=== PATIENT | male | born 1990 | race Caucasian/White ===

== ENCOUNTER → 2016-08-30 | Outpatient (CLI) | payer BC | LOC: BHSO 12:47 | DX: F41.1 Generalized anxiety disorder (principal) | CPT/HCPCS: 90791-AI ==

== ENCOUNTER → 2016-10-17 | Outpatient (CLI) | payer BC | LOC: BHSO 13:42 | DX: F41.1 Generalized anxiety disorder (principal) | CPT/HCPCS: 90791-AI ==

== ENCOUNTER → 2016-12-05 | Outpatient (CLI) | payer BC | LOC: BHSO 13:38 | DX: F41.1 Generalized anxiety disorder (principal) ==

== ENCOUNTER → 2017-01-15 | Outpatient (CLI) | payer BC | LOC: BHSO 11:36 | DX: F33.1 Major depressive disorder, recurrent, moderate (principal) ==

== ENCOUNTER → 2017-03-05 | Outpatient (CLI) | payer BC | LOC: BHSO 15:34 | DX: F41.1 Generalized anxiety disorder (principal) ==

== ENCOUNTER → 2017-04-15 | Outpatient (CLI) | payer BC | LOC: BHSO 15:37 | DX: F41.1 Generalized anxiety disorder (principal) ==

== ENCOUNTER → 2017-07-11 | Outpatient (CLI) | payer BC | LOC: BHSO 14:30 | DX: F33.1 Major depressive disorder, recurrent, moderate (principal) | CPT/HCPCS: G0463 ==

== ENCOUNTER → 2017-08-21 | Outpatient (CLI) | payer BC | LOC: BHSO 13:22 | DX: F33.41 Major depressive disorder, recurrent, in partial remission (principal) | CPT/HCPCS: G0463 ==

== ENCOUNTER → 2017-10-24 | Outpatient (CLI) | payer BC | LOC: BHSO 15:21 | DX: F33.42 Major depressive disorder, recurrent, in full remission (principal) | CPT/HCPCS: G0463 ==

== ENCOUNTER → 2018-02-12 | Outpatient (CLI) | payer BC | LOC: BHSO 14:35 | DX: F33.42 Major depressive disorder, recurrent, in full remission (principal) | CPT/HCPCS: G0463 ==

== ENCOUNTER → 2018-06-19 | Outpatient (CLI) | payer OTHER | LOC: BHSO 14:52 | DX: F41.1 Generalized anxiety disorder (principal) ==

== ENCOUNTER → 2018-08-28 | Outpatient (CLI) | payer OTHER | LOC: BHSO 15:11 | DX: F33.41 Major depressive disorder, recurrent, in partial remission (principal) | CPT/HCPCS: G0463 ==

== ENCOUNTER → 2018-11-25 | Outpatient (CLI) | payer OTHER | LOC: BHSO 14:57 | DX: F33.41 Major depressive disorder, recurrent, in partial remission (principal) | CPT/HCPCS: G0463 ==

== ENCOUNTER → 2019-02-24 | Outpatient (CLI) | payer BC | LOC: BHSO 07:54 | DX: F33.41 Major depressive disorder, recurrent, in partial remission (principal) | CPT/HCPCS: G0463 ==

== ENCOUNTER → 2019-05-28 | Outpatient (CLI) | payer BC | LOC: BHSO 15:50 | DX: F41.1 Generalized anxiety disorder (principal) | CPT/HCPCS: G0463 ==

== ENCOUNTER → 2019-10-16 | Outpatient (CLI) | payer BC | LOC: BHSO 15:50 | DX: F41.1 Generalized anxiety disorder (principal) | CPT/HCPCS: G0463 ==

== ENCOUNTER → 2020-02-09 | Outpatient (CLI) | payer BC | LOC: BHSO 16:09 | DX: F41.1 Generalized anxiety disorder (principal) | CPT/HCPCS: G0463 ==